=== PATIENT | female | born 1990 | race Caucasian/White ===

== ENCOUNTER 2016-07-06 13:17 | Outpatient (CLI) | payer BC | END 2016-07-06 13:18 | disposition home or self-care (01) | LOC: NAVSJIPCSP 13:17 | PROVIDERS: ATTEND Internal Medicine | DX: N20.0 Calculus of kidney (principal); K76.0 Fatty (change of) liver, not elsewhere classified | CPT/HCPCS: 87086 ==

== ENCOUNTER 2016-10-17 16:35 | Outpatient (CLI) | payer BC ==
--- NOTE | 2016-10-18 07:48 | RAD ---
THREE VIEW LEFT ANKLE: Indication: Four day duration of pain subsequent to twisting injury. FINDINGS: Mortise is intact. No fracture, dislocation identified. IMPRESSION: No acute fracture. POS: [facility]
== END 2016-10-17 16:36 | disposition home or self-care (01) ==
LOC: NAV RAD 16:35
PROVIDERS: ATTEND Internal Medicine
DX: S96.912A Strain of unspecified muscle and tendon at ankle and foot level, left foot, initial encounter (principal)

== ENCOUNTER 2016-12-26 09:35 | Outpatient (CLI) | payer BC ==
[~2016-12-26 09:35] MED LIST: Iopamidol 370 76% 100 ML VIAL ONE
[2016-12-26 10:10] LABS: Anion Gap 16 mmol/L (10-20); BUN (Urea Nitrogen) 9 mg/dL (7.0-18.7); Calc. Creatinine Clearance 0 mL/min (70-130); Calcium 9.5 mg/dL (7.8-10.44); Carbon Dioxide 22 mmol/L (22-29); Chloride 107 mmol/L (98-107); Estimated GFR-MDRD Greater than 90; Glucose 106 mg/dL (70-105); Sodium 141 mmol/L (136-145)
--- NOTE | 2016-12-26 14:10 | CT ---
CT ANGIOGRAM ABDOMEN WITH IV CONTRAST AND 3D RECONSTRUCTIONS CT ANGIOGRAM PELVIS WITH IV CONTRAST AND 3D RECONSTRUCTIONS HISTORY: History of renal calculi and prior ureteral stent placement. The patient has chronic hematuria. Hy pertension. COMPARISON: Nonenhanced CT scan of the abdomen and pelvis on 06/08/2016. FINDINGS: There is minimal dependent bibasilar atelectasis. There is diminished attenuation of the liver, related to fatty infiltration, with focal fatty sparin g adjacent to the gallbladder. The spleen, pancreas, bilateral adrenal glands, and right kidney demonstrate a normal CT appearance. There is a wedge-shaped, low density area with cortical thinning seen at the posterolateral aspect of the mid portion left kidney, likely related to mild scarring. The calculus seen in the left kid mariluz is not visualized on this exam. The urinary bladder is decompressed and not well evaluated. The uterus and adnexal structures are grossly within normal limits, with probably dominant follicles in each ovary. A small amount of free fluid is seen in the pelvis, a portion of which appears loculated, just to th e right of the rectum. This area of fluid measures 2.1 cm x 1.5 cm. The abdominal aorta is normal in caliber without evidence of an aortic dissection. The bilateral il iac and common femoral arteries, as well as the most proximal visualized superficial femoral and pro obdulio femoral arteries are normal in caliber. There are two patent right and three patent left renal arteries seen. IMPRESSION: 1. Two patent right and three patent left renal arteries seen. No renal artery aneurysm is seen. There is no focal stenosis involving the renal arteries. 2. Area of mild scarring involving the posterolateral aspect of the mid portion of the left kidney. 3. Previously noted left renal calculus is not definitely seen on this examination. There is no hy dronephrosis. 4. Fatty infiltration of the liver. 5. Small amount of fluid to the right of the rectum, which does appear loculated and measures 2.1 c m x 1.5 cm. This is located posterior to the uterus. POS: [facility]
== END 2016-12-26 09:36 | disposition home or self-care (01) ==
LOC: NAV CT 09:35
PROVIDERS: ATTEND Internal Medicine
DX: K58.0 Irritable bowel syndrome with diarrhea (principal); I10 Essential (primary) hypertension; R31.9 Hematuria, unspecified; N20.0 Calculus of kidney; K76.0 Fatty (change of) liver, not elsewhere classified
CPT/HCPCS: 36415; 74174; 80048

== ENCOUNTER 2017-06-15 08:04 | Outpatient (CLI) | payer BC ==
--- NOTE | 2017-06-15 10:09 | ULT ---
RENAL ULTRASOUND: Comparison: 07-12-16 History: 16-weeks with abdominal pain. Evaluate for hydronephrosis. Technique: Multiplanar grayscale and color doppler images were obtained in a renal ultrasound. FINDINGS: The kidneys are normal in echogenicity without hydronephrosis or calculi and measures 13.6 and 14.5 c m in length on the right and left, respectively. Limited visualization of the urinary bladder is unre markable. IMPRESSION: Unremarkable renal ultrasound. POS: [facility]
== END 2017-06-15 08:05 | disposition home or self-care (01) ==
LOC: NAV ULT 08:04
PROVIDERS: ATTEND Internal Medicine
DX: N20.0 Calculus of kidney (principal)
CPT/HCPCS: 76770

== ENCOUNTER 2018-10-25 16:07 | Outpatient (CLI) | payer BC ==
--- NOTE | 2018-10-25 16:42 | CT ---
CT Abdomen Pelvis WO Con: 10/25/2018 4:15 PM INDICATION: Right-sided flank pain and hematuria. COMPARISON: CT the abdomen and pelvis dated December 26, 2016, June 08, 2016 and May 11, 2016 TECHNIQUE: Multiple CT images were obtained abdomen and pelvis without IV contrast. Axial, coronal re formatted images were constructed from the raw data. FINDINGS: This examination is limited for the evaluation of solid organs and vascular structures due to the lac k of intravenous contrast which is standard for urinary calculus assessment CT. The liver is within normal limits. The spleen is within normal limits. The pancreas is within normal limits. The adrenal glands are within normal limits. No retroperitoneal lymphadenopathy. No mesenteric lymphadenopathy. No free fluid in the abdomen. Right kidney & ureter: - Kidney - No calculi. - Ureter - there is a 2.2 mm calculus seen in the expected region of the right UVJ without right-side d hydronephrosis. calculi. - Obstruction / hydronephrosis - none Left kidney & ureter: - Kidney - No calculi. Size range not applicable. - Ureter - No calculi. Size not applicable. - Obstruction / hydronephrosis - No Other: No other significant abnormalities of the upper urinary tract. There is a moderate amount of retained stool within the colon. The appendix is not definitely visuali zed. No free fluid in the pelvis. No pelvic lymphadenopathy. No inguinal lymphadenopathy. Urinary bladder: - No calculi. Size of the urinary bladder is largely decompressed. - Bladder is distended adequately. - Wall is thin. There is stable bilateral osteonecrosis of the femoral heads without evidence of subchondral collapse . IMPRESSION: 1. 2.2 mm suspected right UVJ calculus without right-sided hydronephrosis. 2. Moderate amount of retained stool within the colon. 3. Stable bilateral femoral head osteonecrosis without evidence of subchondral collapse.
== END 2018-10-25 16:08 | disposition home or self-care (01) ==
LOC: NAV CT 16:07
PROVIDERS: ATTEND Internal Medicine
DX: N39.0 Urinary tract infection, site not specified (principal); N20.0 Calculus of kidney; K59.00 Constipation, unspecified; M87.852 Other osteonecrosis, left femur; M87.851 Other osteonecrosis, right femur
CPT/HCPCS: 74176